=== PATIENT | male | born 1995 | race Caucasian/White ===

== ENCOUNTER → 2019-06-10 | Emergency (ER) | payer SELFPAY ==
[~2019-06-10] VITALS: Ht 172.7 cm; Wt 76.7 kg
[2019-06-10 17:55] VITALS: BP 110/70
--- NOTE | 2019-06-10 17:56 | NUR ---
Pt got out of bed, Gait even and steady-appropriately dressed. Walked out of the ER. Dr Ackerman made aware
== END | disposition left against medical advice (07) ==
LOC: ER 17:38
DX: Z53.21 Procedure and treatment not carried out due to patient leaving prior to being seen by health care provider (principal)

== ENCOUNTER 2019-09-11 21:12 | Emergency (ER) | payer BC ==
[~2019-09-11] VITALS: Ht 170.2 cm; Wt 59.0 kg
[2019-09-11 21:19] VITALS: BP 129/78
== END 2019-09-11 21:27 | disposition home or self-care (01) ==
LOC: ER 21:13
DX: F15.10 Other stimulant abuse, uncomplicated (principal); R45.1 Restlessness and agitation; R00.0 Tachycardia, unspecified; J45.909 Unspecified asthma, uncomplicated